=== PATIENT | female | born 1970 | race Caucasian/White ===

== ENCOUNTER 2022-06-28 09:26 | Emergency (ER) | payer BC, SELFPAY ==
--- NOTE | ~2022-06-28 | CT_ITS ---
EXAMINATION: CTA chest PE abdomen pel DATE: 06/28/2022 12:09 CDT INDICATION: Shortness of breath, chest pain, abdomen pain and low back pain. Stage IV lung cancer. TECHNIQUE: Computed tomographic angiography (CTA) of the chest, abdomen, and pelvis was performed wit hout and with 100 mL Omnipaque-350 intravenous contrast. The dose-length product was 965.73 mGy-cm. M aximum intensity projection 3D-reconstructions of the aorta and other arteries were constructed by melo garcia technologist on a separate workstation. COMPARISON: No prior studies for comparison. . 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 No rafaela dence for aortic aneurysm or dissection. Heart size normal. No significant pleural or pericardial eff usion. There is extensive mediastinal and bilateral hilar lymphadenopathy. There is conglomerate righ t upper lobe mass measuring approximately 7.5 x 6.4 x 6.8 cm. There is a cavitary right upper lobe no dule measuring 2.4 cm posteriorly abutting the pleural surface. There is a cavitary mass in the left upper lobe adjacent to the fissure measuring 5.8 x 1.8 cm greatest axial dimension. There is emphysem a. There is a 7 mm left lower lobe nodule. There is an 8 mm right lower lobe nodule. No pneumothorax. No endobronchial lesions. There there are additional groundglass nodules of the right lower lobe jia suring up to 8 mm. ABDOMEN AND PELVIS CTA: There is splenomegaly. There are calcified granulomas of the spleen. There is an IVC filter present. The liver, pancreas, adrenal glands are unremarkable. There is a 2.4 x 2.2 cm hypovascular mass of th e right kidney posteriorly. There is a small subcentimeter hypodensity of the right kidney, most like ly benign cysts. No significant vascular abnormality. There are air-fluid levels throughout the bowel , most likely ileus. No definite obstruction. Normal appendix. No lymphadenopathy. No free air or franko e fluid. There are surgical changes of the left femoral neck. There are multiple lytic lesions involv ing multiple lower thoracic vertebra, lumbar vertebra, sacrum and pelvis as well as the proximal aspe ct of the right femur there is a large lytic defect of T8 with pathologic fracture of the superior en dplate and destruction of the anterior cortex. There is a healed right eighth rib fracture posteriorl y. IMPRESSION: 1. Occluded right lower lobe segmental pulmonary artery, consistent with embolism, likely chronic. 2: Large conglomerate right upper lobe mass invading the mediastinum measuring up to 7.5 cm. Multipl e additional bilateral breast nodules are present, largest in the left upper lobe measuring 5.8 cm wi th associated cavitary change. Findings are consistent with primary bronchogenic carcinoma with metas tases. 3: Mediastinal and hilar lymph node enlargement, consistent with metastatic disease. 4: Splenomegaly. 5: Hypodense right renal mass measuring 2.4 cm. Consider infection, primary malignancy and metastatic disease. 6: Widespread osseous metastases with pathologic fractures. Plate of T8. Reviewed, dictated and finalized at location A. IMPRESSION: 1. Occluded right lower lobe segmental pulmonary artery, consistent with emboli sm, likely chronic. 2: Large conglomerate right upper lobe mass invading the mediastinum measuring up to 7.5 cm. Multiple additional bilateral breast nodules are present, larges t in the left upper lobe measuring 5.8 cm with associated cavitary change. Find ings are consistent with primary bronchogenic carcinoma with metastases. 3: Mediastinal and hilar lymph node enlargement, consistent with metastatic dis ease. 4: Splenomegaly. 5: Hypodense right renal mass measuring 2.4 cm. Consider infection, primary mal ignancy and metastatic disease. 6: Wides
[2022-06-28 09:29] VITALS: BP 115/60; PULSE 109; RESP 18; TEMP 36.4; O2SAT 100
--- NOTE | 2022-06-28 09:51 | ED.GENADULT ---
HPI - General Adult General Chief complaint: Unspecified Stated complaint: PAIN ALL OVER Time Seen by Provider: 06/28/22 09:40 Source: patient and family Mode of arrival: EMS Limitations: no limitations History of Present Illness HPI narrative: Patient is a 51 y/o female who presents to the ED via EMS with multiple complaints. Daughter at bedside assisted in providing patient's information. 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 She was diagnosed in March and is currently undergoing palliative chemotherapy under Dr. Sullivan at [facility] [place]. Mother reports patient had multiple complications after her last chemotherapy treatment and required platelet and blood transfusions. Patient last had a chemo treatment last Wednesday. She reported having acute on chronic worsening low back pain since the last treatment. She was advised to go to the hospital on Wednesday, however they did not want to go. This morning, patient reported that something did not feel right and EMS was called. Patient does complain of intermittent pain in her chest and abdomen, nausea, low back pain, pain to her hips. Patient has not taken anything for her pain. She has previously Rx'd oxycodone by pain management, but has run out of these. Per patient's med rec, she was Rx'd a 30day supply of Oxycodone 20mg ER tablets on 06/09. Denies fever, worsening shortness of breath. Chronically wears 3L NC. Related Data Allergies Allergy/AdvReac Type Severity Reaction Status Date / Time No Known Allergies Allergy Verified 06/28/22 09:40 Review of Systems Review of Systems: CONSTITUTIONAL: Denies fever, chills, or sweats. CARDIOVASCULAR: See HPI. RESPIRATORY: Denies dyspnea. GASTROINTESTINAL: See HPI. GENITOURINARY: Denies dysuria or hematuria. SKIN: Denies rash or itching. MUSCULOSKELETAL: See HPI. All systems reviewed & are unremarkable except as noted in HPI and below PMFSH Past Medical History Medical History Stage IV squamous cell carcinoma of lung Surgical History Surgical History S/P ORIF (open reduction internal fixation) fracture ronal to femur from bone/pelvic metastatic erosion Family History Family History (Updated 12/20/17 @ 15:39 by DOCTOR UNKNOWN) Mother Carcinoma of colon Father Family history of lung cancer, Onset Age: 77 Social History Social History Smoking status: Heavy tobacco smoker Alcohol intake: never Exam Narrative: GENERAL: Chronically ill appearing, obese with BMI of 30.3, non-toxic, in no acute distress. HEAD: Normocephalic, atraumatic. EENT: PERRLA/EOMI, conjunctiva clear. MMs somewhat dry. NECK: Supple. No adenopathy, no masses. RESPIRATORY: Airway patent, respirations nonlabored. Clear to auscultation bilaterally, no rales, rhonchi, wheezing. No tachypnea or distress. On 3L nasal cannula. CARDIOVASCULAR: Borderline tachycardic with regular rhythm without murmurs, rubs, or gallops. Peripheral pulses 2+ and equal bilaterally. ABDOMINAL: Soft, tenderness and left-sided abdomen, nondistended, no hepatosplenomegaly. Normoactive BS. MUSCULOSKELETAL: Moves all extremities. Strength/ROM intact without gross deformities. Diffuse tenderness throughout thoracic or lumbar spine. No palpable deformities. SKIN: Warm, dry, mildly pale appearing. No rashes. NEURO: A&O X3. Speech clear. Occasionally forgetful or losing thought process. Cranial nerves II-XII grossly intact. No ataxic movements. PSYCHIATRIC: Appropriate mood and affect. Normal interaction. Course Vital Signs Vital signs: Vital Signs Temperature 97.6 F 06/28/22 09:29 Pulse Rate 109 H 06/28/22 09:29 Respiratory Rate 18 06/28/22 09:29 Blood Pressure 115/60 06/28/22 09:29 Pulse Oximetry 100 06/28/22 09:29 Oxy
--- NOTE | 2022-06-28 10:06 | ECG_ITS ---
Measurements Intervals [place] Rate: 110 P: 56 ME: 140 QRS: 14 QRSD: 80 T: 66 QT: 309 QTc: 418 Interpretive Statements SINUS TACHYCARDIA LEFT ATRIAL ENLARGEMENT CONSIDER INFERIOR INFARCT, AGE INDETERMINATE BORDERLINE T WAVE ABNORMALITY- ANTERIOR LEADS ABNORMAL ECG NO PREVIOUS ECG AVAILABLE FOR COMPARISON Electronically Signed On 06-28-2022 13:32:00 CDT by Kilo Bates D.O.
[2022-06-28 11:03] LABS: Basophils Absolute Auto 0.1 K/mm3 (0.0-0.1); Basophils Percent Auto 0.9 % (0.2-1.2); Hematocrit 23.7 % (37.0-47.0); Hemoglobin 7.1 g/dL (12.0-15.0); Immature Granulocyte Percent A 1.8 % (0-0.5); Immature Platelet Fraction Pct 2.8 % (0.9-11.2); Lymphocytes Absolute Auto 0.15 K/mm3 (0.9-3.2); Lymphocytes Percent Auto 2.7 % (18.3-44.2); Mean Corpuscular Hemoglobin 25.5 pg (26-34); Mean Corpuscular Volume 85.3 fl (80-100); Mean Platelet Volume 10.9 fl (7.4-10.4); Monocytes Percent Auto 0.7 % (2.6-8.5); Neutrophils Absolute Auto 5.3 K/mm3 (1.3-6.7); Neutrophils Percent Auto 93.9 % (45.5-73.1); Platelet Count Result 96 k/mm3 (150-375); Red Blood Count 2.78 M/mm3 (4.2-5.4); Red Cell Distribution Width 19.2 % (11.5-14.5); White Blood Count 5.6 K/mm3 (4.5-10.0)
[2022-06-28 11:12] LABS: Alanine Aminotransferase 13 U/L (6-35); Albumin Level 3.1 g/dL (3.5-5.1); Alkaline Phosphatase 172 U/L (38-126); Anion Gap 5 mmol/L (8-16); Aspartate Amino Transferase 17 U/L (14-36); Bilirubin,Total 0.9 mg/dL (0.2-1.3); Blood Urea Nitrogen 12 mg/dL (7-17); Carbon Dioxide 29 mmol/L (22-30); Chloride 101 mmol/L (98-107); Estimated CRCL calculation 94 ml/min; Estimated Glomerular Filt Rate > 60; Glucose 128 mg/dL (65-110); Lactic Acid Reflex 0.8 mmol/L (0.7-2.0); Lipase 52 U/L (23-300); Magnesium 1.7 mg/dL (1.6-2.3); Potassium 3.5 mmol/L (3.4-5.0); Sodium 135 mmol/L (137-145)
[2022-06-28 11:16] LABS: INR 1.2; Prothrombin Time 15.2 Seconds (11.1-14.7)
[2022-06-28 11:17] LABS: Partial Thromboplastin Time 28.9 SECONDS (22.3-36.8)
[2022-06-28 11:23] LABS: NT Pro B Type Natriuretic Pept 955 pg/mL (19.9-100); Troponin I < 0.012 ng/mL (0.000-0.034)
[2022-06-28] MEDS: SODIUM CHLORIDE 0.9% IV 1,000 ML 999 ML IV CONT (11:26)
[2022-06-28 11:27] LABS: Hypochromasia 2+ (NORMAL); Microcytosis 1+ (NORMAL); Poikilocytosis 1+ (NORMAL); Tear Drop Cells 1+ (NORMAL)
[2022-06-28 11:28] LABS: Schistocytes None Seen (NORMAL)
[2022-06-28 11:30] LABS: Appearance Urine Cloudy (Clear); Bacteria Urine 4+ /hpf; Bilirubin Urine Negative (Negative); Blood Urine Negative (Negative); Color Urine Yellow (Yellow); Glucose Urine UA Negative (Negative); Ketones Urine 2+ mg/dL (Negative); Leukocyte Esterase Ur Trace LEU/UL (Negative); Need Manual Microscopic Reviewed; Nitrate Urine Negative (Negative); Protein Urine 2+ mg/dL (Negative); Specific Grav Ur 1.016 (1.001-1.035); Squamous Epithelial Cell Urine Few /hpf (Few)
[2022-06-28 11:37] LABS: Add Urine Microscopic? YES; Influenza A QL RT-PCR Negative (Negative); Influenza B QL RT-PCR Negative (Negative); SARS-CoV-2 RNA PCR Negative (Negative)
[2022-06-28] MEDS: diphenhydrAMINE HCl INJ 50 MG/ML VIAL 25 MG IV PUSH (14:00)
[2022-06-28] MEDS: ACETAMINOPHEN 500 MG TABLET 1000 MG PO (14:00)
[2022-06-28 14:36] VITALS: BP 127/73; PULSE 104; RESP 18; TEMP 36.8; O2SAT 98
[2022-06-28] MEDS: TUBING, BLOOD SET 1 EACH XX (14:42)
[2022-06-28] MEDS: SODIUM CHLORIDE 0.9% IV 250 ML 30 ML IV CONT (14:42)
[2022-06-28 14:52] VITALS: BP 144/83; PULSE 120; RESP 18; TEMP 36.7; O2SAT 97
[2022-06-28 15:52] VITALS: BP 136/74; PULSE 104; RESP 22; TEMP 36.7; O2SAT 95
[2022-06-28 16:11] VITALS: BP 138/74; PULSE 100; RESP 21; TEMP 36.7; O2SAT 96
[2022-06-28 18:23] VITALS: BP 132/79; PULSE 78; O2SAT 99
== END 2022-06-28 18:24 | disposition home or self-care (01) ==
PROVIDERS: Emergency Provider Physician Assistant
DX: C34.91 Malignant neoplasm of unspecified part of right bronchus or lung (principal); D64.9 Anemia, unspecified; D69.6 Thrombocytopenia, unspecified; M84.58XA Pathological fracture in neoplastic disease, other specified site, initial encounter for fracture; I27.82 Chronic pulmonary embolism; R82.998 Other abnormal findings in urine; Z20.822 Contact with and (suspected) exposure to COVID-19; C79.51 Secondary malignant neoplasm of bone; C79.31 Secondary malignant neoplasm of brain; F17.200 Nicotine dependence, unspecified, uncomplicated; Z79.60 Long term (current) use of unspecified immunomodulators and immunosuppressants; R00.0 Tachycardia, unspecified; R94.31 Abnormal electrocardiogram [ECG] [EKG]
CPT/HCPCS: 36415; 36430; 71275; 74177; 80053; 81001; 83605; 83690; 83735; 83880; 84484; 85025; 85055; 85610; 85730; 86850; 86900; 86901; 86920; 87040; 87077; 87086; 87186; 87636; 93005; 96361; 96365; 96375; 99285; A9270; J0696; J1200; J7030; J7050; P9016; Q9967

== ENCOUNTER 2022-07-05 19:56 | Emergency (ER) | payer BC, SELFPAY ==
[2022-07-05] VITALS (24 sets, daily range): BP systolic 90–112; BP diastolic 38–71; PULSE 103–116; RESP 13–26; TEMP 36.5–36.8; O2SAT 97–100
--- NOTE | ~2022-07-05 | XR_ITS ---
EXAMINATION: XR chest 1V portable Exam Date/Time: 07/05/2022 20:45 CDT HISTORY: Hemoptysis SHORT OF BREATH, FEVER Comparison: CTPA 06/28/2022. RESULT: Lines, tubes, and devices: Left chest port, terminating in the right atrium. Stent in the superior v teodoro cava. Lungs and pleura: New airspace disease in the right lower lung. Persistent right upper lobe opacific ations which corresponded to cavitary lesions in the prior CT. Left upper lobe cavitary lesion is not well seen radiographically. Cardiomediastinal silhouette: Stable. Known mediastinal lymphadenopathy not well seen radiographical ly. Other: No acute osseous or upper abdominal finding. IMPRESSION: Worsening airspace disease in the left lower lung, may represent edema, pulmonary hemorrhage, or infe ction. Reviewed, dictated and finalized at location K. IMPRESSION: Worsening airspace disease in the left lower lung, may represent edema, pulmona ry hemorrhage, or infection.
--- NOTE | ~2022-07-05 | CT_ITS ---
EXAMINATION: CTA chest PE protocol DATE: 07/05/2022 22:16 INDICATION: Dyspnea. Hemoptysis. TECHNIQUE: Computed tomography angiography (CTA) of the chest was performed with 100 mL Omnipaque-350 intravenous contrast timed to evaluate the pulmonary arteries. Coronal maximum intensity projection 3D-reconstructions were created by the technologist. Automated exposure control and iterative reconst ruction technique were employed. The dose-length product was 213.13 mGy-cm. COMPARISON: Chest CT 06/28/2022 FINDINGS: There are airspace and groundglass opacities and centrilobular nodules throughout left righ t lung. There is a 7.4 x 5.9 cm cavitary mass in right upper lobe. There is a 2.5 x 1.8 cm cavitary n odule in right upper lobe. There are patchy groundglass opacities in left upper lobe and left lower l obe. There are centrilobular nodules in left lower lobe. There is a 5.3 x 1.9 cm cavitary mass in wallace gula. A calcified right lung nodule and calcified right hilar lymph nodes are consistent with old gra nulomatous disease. There is mild stenosis of the right mainstem bronchus. There is a trace right ple ural effusion. The heart size is normal. No pericardial effusion. There is right hilar and mediastina l lymphadenopathy. There is right supraclavicular lymphadenopathy. There is a left internal jugular p ort with tip at superior cavoatrial junction. Again seen are thrombosed pulmonary arteries in right l ower lobe and lingula. The gallbladder is distended. Calcifications in the spleen are consistent with old granulomatous disease. There is mild splenomegaly. There are scattered lytic lesions of bone. Th ere are healing pathologic fractures of right seventh and ninth ribs and left fifth rib. There is a p athologic compression fracture of T8. There is mild chronic anterior wedging of T11 vertebral body. IMPRESSION: 1. Thrombosed pulmonary arteries again seen in right lower lobe and lingula, which may be chronic. 2. Cavitary mass in right upper lobe, likely primary bronchogenic carcinoma. 3. Diffuse lung disease, consistent with pneumonia. A cavitary nodule in right upper lobe and cavitar y mass in lingula may be metastatic disease or pneumonia. 4. Widespread osseous metastatic disease. 5. Right hilar and mediastinal lymphadenopathy, likely metastatic disease. Reviewed, dictated and finalized at location A. IMPRESSION: 1. Thrombosed pulmonary arteries again seen in right lower lobe and lingula, wh ich may be chronic. 2. Cavitary mass in right upper lobe, likely primary bronchogenic carcinoma. 3. Diffuse lung disease, consistent with pneumonia. A cavitary nodule in right upper lobe and cavitary mass in lingula may be metastatic disease or pneumonia. 4. Widespread osseous metastatic disease. 5. Right hilar and mediastinal lymphadenopathy, likely metastatic disease.
[2022-07-05] MEDS: SODIUM CHLORIDE 0.9% IV 1,000 ML 999 ML IV CONT (20:36)
[2022-07-05] MEDS: ONDANSETRON INJ 4 MG/2 ML VIAL IV PUSH (20:36)
[2022-07-05 20:45] LABS: Immature Platelet Fraction Pct 6.5 % (0.9-11.2); Mean Corpuscular HGB Conc 31.9 g/dl (32-36); Mean Corpuscular Hemoglobin 25.4 pg (26-34); Mean Corpuscular Volume 79.6 fl (80-100); Mean Platelet Volume 10.8 fl (7.4-10.4); Platelet Count Result 51 k/mm3 (150-375); Red Blood Count 2.01 M/mm3 (4.2-5.4); Red Cell Distribution Width 16.2 % (11.5-14.5); White Blood Count 10.7 K/mm3 (4.5-10.0)
[2022-07-05 20:53] LABS: INR 1.6; Prothrombin Time 20.3 Seconds (11.1-14.7)
[2022-07-05 20:54] LABS: Lactic Acid Reflex 0.7 mmol/L (0.7-2.0)
[2022-07-05 20:57] LABS: Alanine Aminotransferase 14 U/L (6-35); Alkaline Phosphatase 139 U/L (38-126); Aspartate Amino Transferase 16 U/L (14-36); Bilirubin,Total 0.8 mg/dL (0.2-1.3); Blood Urea Nitrogen 16 mg/dL (7-17); Calcium 7.7 mg/dL (8.4-10.2); Carbon Dioxide > 40 mmol/L (22-30); Chloride 91 mmol/L (98-107); Estimated CRCL calculation 90 ml/min; Estimated Glomerular Filt Rate > 60; Glucose 94 mg/dL (65-110); Magnesium 1.4 mg/dL (1.6-2.3); Potassium 2.7 mmol/L (3.4-5.0); Sodium 136 mmol/L (137-145)
[2022-07-05] MEDS: LEVALBUTEROL NEB 1.25 MG/3 ML INHALATION (20:57)
[2022-07-05] MEDS: IPRATROPIUM BR 0.02% INH SOLN 0.5 MG/2.5 ML VIAL INHALATION (20:58)
[2022-07-05 21:02] LABS: Hemoglobin 5.1 g/dL (12.0-15.0)
[2022-07-05 21:04] LABS: NT Pro B Type Natriuretic Pept 741 pg/mL (19.9-100); Troponin I < 0.012 ng/mL (0.000-0.034)
[2022-07-05 21:09] LABS: Band Neutrophils Percent 5 % (0-6); Lymphocytes Absolute Manual 1.39 K/mm3 (1.1-4.5); Lymphocytes Percent Manual 13 % (18-44); Monocytes Absolute Manual 0.42 K/mm3 (0.1-0.90); Monocytes Percent Manual 4 % (3-9); Total Cells Counted 100
[2022-07-05 21:10] LABS: Anisocytosis 2+ (NORMAL); Metamyelocytes Percent 2 %; Neutrophils Absolute Manual 8.66 K/mm3 (1.7-7.2); Neutrophils Percent Manual 76 % (46-73); Platelet Estimate Decreased (Adequate)
[2022-07-05 21:11] LABS: Ovalocytes 1+ (NORMAL)
[2022-07-05 21:12] LABS: Atypical Lymphocytes Present; Schistocytes None Seen (NORMAL)
[2022-07-05 21:17] LABS: Procalcitonin 1.8 ng/mL
--- NOTE | 2022-07-05 22:51 | ED.GENADULT ---
HPI - General Adult General Chief complaint: Recheck/Abnormal Lab/Rx Stated complaint: coughing up blood Time Seen by Provider: 07/05/22 20:05 History of Present Illness HPI narrative: Patient is a 51-year-old female who presents the emergency department with chief complaint of hemoptysis. The patient reports she has history of lung cancer and is undergoing treatment with her oncologist at [facility]. Patient states that she completed treatment approximately 2 weeks ago and for 2 days now has been having hemoptysis and feeling generalized weakness. Patient reports that she is concerned that she may have electrolyte abnormalities or may be anemic and required a transfusion. Related Data Home Medications Medication Instructions Recorded Confirmed cyanocobalamin (vitamin B-12) 100 100 mcg PO DAILY 07/05/22 07/05/22 mcg tablet ergocalciferol (vitamin D2) 1,250 50,000 WEEKLY 07/05/22 mcg (50,000 unit) capsule folic acid 1 mg tablet 07/05/22 ondansetron HCl 4 mg tablet mg 07/05/22 oxycodone 20 mg tablet mg 07/05/22 pantoprazole 40 mg tablet,delayed mg PO 07/05/22 release polysaccharide iron complex 150 mg mg 07/05/22 iron capsule pregabalin 50 mg capsule mg 07/05/22 prochlorperazine maleate 10 mg mg 07/05/22 tablet senna-docusate sodium tablet tablet PO 07/05/22 07/05/22 sodium di- and tablet 07/05/22 07/05/22 monophosphate-potassium phos monobasic 250 mg tablet (Phosphorous) Allergies Allergy/AdvReac Type Severity Reaction Status Date / Time No Known Allergies Allergy Verified 07/05/22 20:11 Review of Systems Review of Systems: A 10 system review of systems was completed on the patient and is negative except for what is stated in the HPI. Nursing and ancillary documentation was reviewed. [facility] Past Medical History Medical History Stage IV squamous cell carcinoma of lung Surgical History Surgical History S/P ORIF (open reduction internal fixation) fracture ronal to femur from bone/pelvic metastatic erosion Family History Family History Mother Carcinoma of colon Father Family history of lung cancer, Onset Age: 77 Social History Social History Smoking status: Heavy tobacco smoker Alcohol intake: never Exam Narrative: GENERAL: Well-appearing, well-nourished, and in no acute distress. HEAD: Normocephalic, atraumatic. EYES: PERRLA and EOMI. ENT: Nares clear, no rhinorrhea or epistaxis. Mucous membranes moist. NECK: Supple. CHEST: Rhonchi to auscultation. No respiratory distress. HEART: Regular rate and rhythm. No murmur heard. Normal peripheral pulses. ABDOMEN: Soft, nontender, nondistended, normal active bowel sounds. EXTREMITIES: Normal range of motion. No edema. SKIN: Warm, dry, no rash. There are bruises and petechiae present on the upper extremities NEURO: No focal deficits. Alert and oriented x3. PSYCH: Normal mood and affect. Course Vital Signs Vital signs: Vital Signs Temperature 36.6 C 07/05/22 19:59 Pulse Rate 116 H 07/05/22 19:59 Respiratory Rate 26 H 07/05/22 19:59 Blood Pressure 112/71 07/05/22 19:59 Pulse Oximetry 100 07/05/22 19:59 Oxygen Delivery Nasal Cannula 07/05/22 19:59 Oxygen Flow Rate 2 07/05/22 19:59 Temperature 36.7 C 07/06/22 00:00 Pulse Rate 106 H 07/06/22 00:20 Respiratory Rate 15 07/06/22 00:20 Blood Pressure 113/55 L 07/06/22 00:20 Pulse Oximetry 100 07/06/22 00:20 Oxygen Delivery Nasal Cannula 07/05/22 20:53 Oxygen Flow Rate 2 07/05/22 20:53 Medical Decision Making MDM Narrative Medical decision making narrative: Differential diagnosis includes acute anemia, pulmonary embolism, pulmonary hemorrhage, pne
[2022-07-05 23:25] LABS: Influenza A QL RT-PCR Negative (Negative); Influenza B QL RT-PCR Negative (Negative); RSV RNA, RT-PCR Negative (Negative); SARS-CoV-2 RNA PCR Negative (Negative)
[2022-07-06] VITALS (7 sets, daily range): BP systolic 83–120; BP diastolic 44–62; PULSE 102–109; RESP 12–20; TEMP 36.3–36.7; O2SAT 100
[2022-07-06] MEDS: KCL 20 MEQ/SW 100 ML 100 ML 50 MEQ IVPB (01:25)
[2022-07-06] MEDS: MORPHINE SULFATE (*CRX) 4 MG/ML INJ IV PUSH (02:32)
== END 2022-07-06 02:35 | disposition short-term general hospital (02) ==
PROVIDERS: Emergency Provider Emergency Medicine
DX: R04.2 Hemoptysis (principal); C34.90 Malignant neoplasm of unspecified part of unspecified bronchus or lung; D64.9 Anemia, unspecified; D69.6 Thrombocytopenia, unspecified; E87.6 Hypokalemia; E83.42 Hypomagnesemia; F17.200 Nicotine dependence, unspecified, uncomplicated
CPT/HCPCS: 36415; 36430; 71045; 71275; 80053; 83605; 83735; 83880; 84145; 84484; 85025; 85055; 85610; 85730; 86850; 86900; 86901; 86923; 87040; 87637; 94640; 96361; 96365; 96367; 96374; 96375; 99285; J0696; J2270; J2405; J3480; J7030; J7050; P9016; Q9967

== ENCOUNTER 2022-09-12 00:20 | Emergency (ER) | payer BC, SELFPAY ==
[2022-09-12] VITALS (10 sets, daily range): BP systolic 119–141; BP diastolic 72–83; PULSE 94–102; RESP 12–24; TEMP 36.6; O2SAT 95–100
--- NOTE | ~2022-09-12 | XR_ITS ---
EXAM: XR hip RT min 3V w AP pelvis DATE: 09/12/2022 01:28 HISTORY: pain . COMPARISON: CTPA chest, abdomen, pelvis. FINDINGS: Normal mineralization. No fracture or dislocation. Scattered lucencies in the proximal rig ht femoral diaphysis, bilateral iliac bones, and sacrum. Partially visualized left femoral fixation h ardware. Heterotopic bone formation adjacent to the left hip. Mild bilateral hip osteoarthritis. Mild osteitis pubis. No erosion or periosteal change. Soft tissues within normal limits. IMPRESSION: No acute osseous finding. Lucent bone lesions consistent with metastatic disease. Reviewed, dictated and finalized at location K. IMPRESSION: No acute osseous finding. Lucent bone lesions consistent with metas tatic disease.
--- NOTE | ~2022-09-12 | XR_ITS ---
EXAM: XR ankle RT min 3V DATE: 09/12/2022 01:28 HISTORY: pain going from hip to ankle, no injury . COMPARISON: None available. FINDINGS: Normal mineralization. No fracture or dislocation. No lytic or blastic lesion. Plantar and Achilles enthesopathy. Mild degenerative change at the tibiotalar joint spaces are maintained. No er osion or periosteal change. Soft tissues within normal limits. IMPRESSION: No acute osseous finding in the right ankle. Reviewed, dictated and finalized at location K.
--- NOTE | ~2022-09-12 | XR_ITS ---
XR knee RT 3V DATE: 09/12/2022 01:29 INDICATION: Right knee pain TECHNIQUE: 3 views COMPARISON: None FINDINGS: There is mild periarticular spurring at the medial and patellofemoral compartments. Medial and lateral compartment joint spaces appear relatively preserved. No fracture or dislocation or joint effusion. No radiopaque intra-articular loose body or chondrocalc inosis is detected. IMPRESSION: Mild osteoarthritis Reviewed, dictated and finalized at location A. IMPRESSION: Mild osteoarthritis
--- NOTE | ~2022-09-12 | CT_ITS ---
EXAMINATION: CT pelvis wo con DATE: 09/12/2022 01:51 INDICATION: Right hip pain TECHNIQUE: Computed tomography (CT) of the pelvis was performed without intravenous contrast. Automat ed exposure control and iterative reconstruction technique were employed. Exam dose: 599.99 mGy-cm t otal exam DLP. COMPARISON: None. FINDINGS: There is a lytic lesion of the right L5 pedicle. There are multiple lytic lesions in both i liac bones, the posterior acetabula bilaterally, bilateral sacral lytic lesions, including a particul amos large lesion in the right sacral alar and body. Lytic lesions are suggested in both proximal femurs. Findings are consistent with osteolytic metastat ic disease. There is an intramedullary ronal of the left femur with interlocking compression screw extending into t he left femoral head into the distal transverse interlocking screws. Prominent soft tissue masses in the lateral left pelvic and hip area, possibly soft tissue metastases . 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 Multiple soft tissue masses in the lateral left pelvic and hip area, possibly soft tissue metastases Reviewed, dictated and finalized at Location A. Reviewed, dictated and finalized at location A. 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 Multiple soft tissue masses in the lateral left pelvic and hip area, possibly s oft tissue metastases
[2022-09-12] MEDS: HYDROmorphone HCL INJ (*CRX) 1 MG/ML SYR IV PUSH ×4 (00:56→06:36)
[2022-09-12] MEDS: ONDANSETRON INJ 4 MG/2 ML VIAL IV PUSH (00:56)
[2022-09-12 01:12] LABS: Basophils Percent Auto 0.2 % (0.2-1.2); Eosinophils Percent Auto 0.1 % (0-4.4); Hemoglobin 8.1 g/dL (12.0-15.0); Immature Granulocyte Absolute 0.16 K/mm3 (0.00-0.031); Immature Granulocyte Percent A 1.2 % (0-0.5); Lymphocytes Absolute Auto 0.39 K/mm3 (0.9-3.2); Lymphocytes Percent Auto 2.9 % (18.3-44.2); Mean Corpuscular HGB Conc 28.9 g/dl (32-36); Mean Corpuscular Hemoglobin 23.8 pg (26-34); Mean Corpuscular Volume 82.1 fl (80-100); Mean Platelet Volume 9.8 fl (7.4-10.4); Monocytes Absolute Auto 0.4 K/mm3 (0.1-0.6); Monocytes Percent Auto 3.3 % (2.6-8.5); Neutrophils Absolute Auto 12.3 K/mm3 (1.3-6.7); Neutrophils Percent Auto 92.3 % (45.5-73.1); Platelet Count Result 259 k/mm3 (150-375); Red Blood Count 3.41 M/mm3 (4.2-5.4); Red Cell Distribution Width 15.5 % (11.5-14.5); White Blood Count 13.4 K/mm3 (4.5-10.0)
[2022-09-12 01:23] LABS: INR 1.2; Partial Thromboplastin Time 29.6 SECONDS (22.3-36.8); Prothrombin Time 15.4 Seconds (11.1-14.7)
[2022-09-12 01:23] LABS: Alanine Aminotransferase 15 U/L (6-35); Albumin Level 2.6 g/dL (3.5-5.1); Alkaline Phosphatase 210 U/L (38-126); Anion Gap 1 mmol/L (8-16); Aspartate Amino Transferase 15 U/L (14-36); Bilirubin,Total 0.5 mg/dL (0.2-1.3); Blood Urea Nitrogen 11 mg/dL (7-17); Calcium 8.9 mg/dL (8.4-10.2); Carbon Dioxide 32 mmol/L (22-30); Chloride 99 mmol/L (98-107); Estimated CRCL calculation 79 ml/min; Estimated Glomerular Filt Rate > 60; Glucose 120 mg/dL (65-110); Magnesium 1.8 mg/dL (1.6-2.3); Potassium 3.4 mmol/L (3.4-5.0); Sodium 132 mmol/L (137-145)
[2022-09-12 02:23] LABS: Troponin I < 0.012 ng/mL (0.000-0.034)
--- NOTE | 2022-09-12 02:48 | PC.NURSE ---
When discussing with EDP; this RN noted that she had administered 0.5 mg of Dilaudid instead of the 1 mg of Dilaudid ordered. Witnessed in Pyxis prior to administration.
[2022-09-12 04:13] LABS: Appearance Urine Clear (Clear); Bacteria Urine Rare /hpf; Bilirubin Urine Negative (Negative); Blood Urine Negative (Negative); Color Urine Dark Yellow (Yellow); Glucose Urine UA Negative (Negative); Ketones Urine Trace mg/dL (Negative); Leukocyte Esterase Ur Trace LEU/UL (Negative); Need Manual Microscopic Reviewed; Nitrate Urine Negative (Negative); Protein Urine 1+ mg/dL (Negative); RBC Urine 0-2 /hpf (0-2); Specific Grav Ur 1.021 (1.001-1.035); Squamous Epithelial Cell Urine Few /hpf (Few); WBC Urine 0-5 /hpf; pH Urine 6.5 (5.0-9.0)
[2022-09-12 04:14] LABS: Add Urine Microscopic? YES
[2022-09-12] MEDS: MECLIZINE HCL 25 MG TABLET PO (05:14)
[2022-09-12 05:16] LABS: Troponin I < 0.012 ng/mL (0.000-0.034)
--- NOTE | 2022-09-12 06:16 | ED.GENADULT ---
HPI - General Adult General Chief complaint: Extremity Injury, Lower Stated complaint: LEG PAIN Time Seen by Provider: 09/12/22 00:35 History of Present Illness HPI narrative: Patient 51-year-old female who presents the emergency department with chief complaint of right hip pain. Patient reports she has history of metastatic lung cancer and reports that she has prior history of a pathological fracture of her left femur. The patient reports that now she is having pain in her right hip Related Data Home Medications Medication Instructions Recorded Confirmed cyanocobalamin (vitamin B-12) 100 100 mcg PO DAILY 07/05/22 07/05/22 mcg tablet ergocalciferol (vitamin D2) 1,250 50,000 WEEKLY 07/05/22 mcg (50,000 unit) capsule folic acid 1 mg tablet 07/05/22 ondansetron HCl 4 mg tablet mg 07/05/22 oxycodone 20 mg tablet mg 07/05/22 pantoprazole 40 mg tablet,delayed mg PO 07/05/22 release polysaccharide iron complex 150 mg mg 07/05/22 iron capsule pregabalin 50 mg capsule mg 07/05/22 prochlorperazine maleate 10 mg mg 07/05/22 tablet senna-docusate sodium tablet tablet PO 07/05/22 07/05/22 sodium di- and tablet 07/05/22 07/05/22 monophosphate-potassium phos monobasic 250 mg tablet (Phosphorous) Allergies Allergy/AdvReac Type Severity Reaction Status Date / Time No Known Allergies Allergy Verified 07/05/22 20:11 Review of Systems Review of Systems: A 10 system review of systems was completed on the patient and is negative except for what is stated in the HPI. Nursing and ancillary documentation was reviewed. [facility] Past Medical History Medical History Stage IV squamous cell carcinoma of lung Surgical History Surgical History S/P ORIF (open reduction internal fixation) fracture ronal to femur from bone/pelvic metastatic erosion Family History Family History Mother Carcinoma of colon Father Family history of lung cancer, Onset Age: 77 Social History Social History Smoking status: Heavy tobacco smoker Alcohol intake: never Exam Narrative: GENERAL: Well-appearing, well-nourished, and in no acute distress. HEAD: Normocephalic, atraumatic. EYES: PERRLA and EOMI. ENT: Nares clear, no rhinorrhea or epistaxis. Mucous membranes moist. NECK: Supple. CHEST: Clear to auscultation. No respiratory distress. HEART: Regular rate and rhythm. No murmur heard. Normal peripheral pulses. ABDOMEN: Soft, nontender, nondistended, normal active bowel sounds. EXTREMITIES: Normal range of motion tenderness to palpation in the right hip area. No edema. SKIN: Warm, dry, no rash. NEURO: No focal deficits. Alert and oriented x3. PSYCH: Normal mood and affect. Course Vital Signs Vital signs: Vital Signs Temperature 36.6 C 09/12/22 00:19 Pulse Rate 98 09/12/22 00:19 Respiratory Rate 12 09/12/22 00:19 Blood Pressure 119/79 09/12/22 00:19 Pulse Oximetry 99 09/12/22 00:19 Oxygen Delivery Room Air 09/12/22 00:19 Temperature 36.6 C 09/12/22 00:19 Pulse Rate 102 H 09/12/22 06:12 Respiratory Rate 12 09/12/22 06:12 Blood Pressure 127/83 09/12/22 06:12 Pulse Oximetry 98 09/12/22 06:12 Oxygen Delivery Room Air 09/12/22 00:19 Medical Decision Making [facility] Narrative Medical decision making narrative: Differential diagnosis metastatic disease, pathological fracture Presented with pain white count of 13.4 hemoglobin was 8.1 electrolytes were within normal limits alk phos was slightly elevated at 210 CT scan of the pelvis was obtained which showed worsening osseous metastatic disease right sacral osteo lytic mass no acute fracture left lower extremity shows worsening metastatic disease hematoma or neop
[2022-09-12] MEDS: BELLADONNA ALK/PHENOB ELIX 10 ML, MAG HYDROX/ALUMINUM HYD/SIMETH 30 ML, LIDOCAINE HCL 2... PO (06:34)
== END 2022-09-12 07:31 | disposition home or self-care (01) ==
PROVIDERS: Emergency Provider Emergency Medicine
DX: R10.2 Pelvic and perineal pain (principal); C34.90 Malignant neoplasm of unspecified part of unspecified bronchus or lung; C79.51 Secondary malignant neoplasm of bone; F17.200 Nicotine dependence, unspecified, uncomplicated; M17.11 Unilateral primary osteoarthritis, right knee
CPT/HCPCS: 36415; 72192; 73502; 73562; 73610; 80053; 81001; 83735; 84484; 85025; 85610; 85730; 96374; 96375; 96376; 99284; A9270; J1170; J2405

== ENCOUNTER 2022-09-26 12:35 | Emergency (ER) | payer BC, SELFPAY ==
[2022-09-26] VITALS (60 sets, daily range): BP systolic 73–127; BP diastolic 46–77; PULSE 106–123; RESP 13–25; TEMP 36.6; O2SAT 96–100
--- NOTE | ~2022-09-26 | XR_ITS ---
EXAMINATION: XR hip RT 2V w AP pelvis DATE: 09/26/2022 14:33 INDICATION: Right hip pain. TECHNIQUE: An anteroposterior view of the pelvis and 2 views of right hip were obtained. COMPARISON: Pelvis and right hip radiographs 09/12/2022, CT pelvis 09/12/2022 FINDINGS: Bone alignment is normal. No fracture. There is a lytic lesion in subtrochanteric region of right femur. There are lytic lesions in the iliac bones and sacrum. There is internal fixation of pr oximal left femur. There is mild osteoarthritis of the hips. There is a filter in the inferior vena c ward. IMPRESSION: 1. Lytic lesions of bone, consistent with metastatic disease. 2. Mild osteoarthritis of the hips. Reviewed, dictated and finalized at location E.
--- NOTE | 2022-09-26 12:46 | PC.NURSE ---
Pt arrived with a Fentanyl patch from home on the L buttocks.
--- NOTE | 2022-09-26 13:00 | ED.GENADULT ---
HPI - General Adult General Chief complaint: Unspecified Stated complaint: hip pain Time Seen by Provider: 09/26/22 12:54 History of Present Illness HPI narrative: patient is a 52-year-old female with history of metastatic stage IV lung cancer here with right hip pain. She denies any falls. She notes it has been an ongoing issue for the last several weeks. She does note history of prior fracture in the left hip. She notes that the pain has become unbearable on the right side. Her home regimen includes multiple pain patches including a fentanyl patch which have not been improving her pain. The pain begins in her right hip and radiates downward into her right leg. She notes she was seen here about 2 weeks ago for the same, it is been unchanged since that time. She was additionally seen 2 days ago at [place] emergency department for the same where she had imaging performed which was negative. Both of her last 2 ER visits she was offered admission for pain control but she declined. She is currently on radiation, last round was yesterday. She denies fever or chills. She denies any leg swelling. She notes a history of a prior DVT however is not on any anticoagulation because she has been told in the past she had a high risk of bleeding. She gets around her home with a walker. Related Data Home Medications Medication Instructions Recorded Confirmed cyanocobalamin (vitamin B-12) 100 100 mcg PO DAILY 07/05/22 07/05/22 mcg tablet ergocalciferol (vitamin D2) 1,250 50,000 WEEKLY 07/05/22 mcg (50,000 unit) capsule folic acid 1 mg tablet 07/05/22 ondansetron HCl 4 mg tablet mg 07/05/22 oxycodone 20 mg tablet mg 07/05/22 pantoprazole 40 mg tablet,delayed mg PO 07/05/22 release polysaccharide iron complex 150 mg mg 07/05/22 iron capsule pregabalin 50 mg capsule mg 07/05/22 prochlorperazine maleate 10 mg mg 07/05/22 tablet senna-docusate sodium tablet tablet PO 07/05/22 07/05/22 sodium di- and tablet 07/05/22 07/05/22 monophosphate-potassium phos monobasic 250 mg tablet (Phosphorous) Allergies Allergy/AdvReac Type Severity Reaction Status Date / Time No Known Allergies Allergy Verified 09/26/22 12:43 Review of Systems Review of Systems: CONSTITUTIONAL: Denies fever, chills, or sweats. CARDIOVASCULAR: Denies chest pain, or edema. RESPIRATORY: Denies cough or dyspnea changed from her baseline. GASTROINTESTINAL: Denies abdominal pain MUSCULOSKELETAL: right hip pain NEUROLOGIC: Denies headache, numbness, or weakness. [facility] Past Medical History Medical History Stage IV squamous cell carcinoma of lung Surgical History Surgical History S/P ORIF (open reduction internal fixation) fracture ronal to femur from bone/pelvic metastatic erosion Family History Family History Mother Carcinoma of colon Father Family history of lung cancer, Onset Age: 77 Social History Social History Smoking status: Heavy tobacco smoker Alcohol intake: never Exam Narrative: GENERAL: chronically ill appearing, and in no acute distress. HEAD: Normocephalic, atraumatic. EYES: PERRLA and EOMI. ENT: Nares clear. Mucous membranes moist. NECK: Supple. CHEST: Coarse breath sounds bilaterally. No respiratory distress. HEART: Tachycardic. Normal peripheral pulses. ABDOMEN: Soft, nontender, nondistended. EXTREMITIES: Normal range of motion. Tenderness over the right lateral hip and right proximal femur SKIN: Warm, dry, no rash. NEURO: No focal deficits. Alert and oriented x3. PSYCH: Normal mood and affect. Course Course Emergency Course: Chart review performed. Patient presented via EMS for right hip and leg pain. History of stage 4 lung CA with ch
[2022-09-26] MEDS: HYDROmorphone HCL INJ (*CRX) 1 MG/ML SYR IV PUSH ×4 (13:19→17:39)
[2022-09-26] MEDS: ONDANSETRON INJ 4 MG/2 ML VIAL IV PUSH (13:19)
[2022-09-26 13:31] LABS: Basophils Percent Auto 0.3 % (0.2-1.2); Eosinophils Percent Auto 0.4 % (0-4.4); Hematocrit 28.7 % (37.0-47.0); Immature Granulocyte Absolute 0.13 K/mm3 (0.00-0.031); Immature Granulocyte Percent A 1.2 % (0-0.5); Lymphocytes Absolute Auto 0.27 K/mm3 (0.9-3.2); Lymphocytes Percent Auto 2.6 % (18.3-44.2); Mean Corpuscular HGB Conc 27.9 g/dl (32-36); Mean Corpuscular Hemoglobin 23.5 pg (26-34); Mean Corpuscular Volume 84.4 fl (80-100); Mean Platelet Volume 10.4 fl (7.4-10.4); Monocytes Absolute Auto 0.4 K/mm3 (0.1-0.6); Monocytes Percent Auto 3.5 % (2.6-8.5); Neutrophils Absolute Auto 9.6 K/mm3 (1.3-6.7); Platelet Count Result 191 k/mm3 (150-375); Red Cell Distribution Width 16.6 % (11.5-14.5); White Blood Count 10.4 K/mm3 (4.5-10.0)
[2022-09-26 13:44] LABS: Alanine Aminotransferase 13 U/L (6-35); Albumin Level 2.5 g/dL (3.5-5.1); Alkaline Phosphatase 181 U/L (38-126); Anion Gap 2 mmol/L (8-16); Aspartate Amino Transferase 13 U/L (14-36); Bilirubin,Total 0.5 mg/dL (0.2-1.3); Blood Urea Nitrogen 22 mg/dL (7-17); Calcium 8.4 mg/dL (8.4-10.2); Carbon Dioxide 28 mmol/L (22-30); Chloride 102 mmol/L (98-107); Estimated CRCL calculation 89 ml/min; Estimated Glomerular Filt Rate > 60; Glucose 97 mg/dL (65-110); Potassium 3.9 mmol/L (3.4-5.0); Sodium 132 mmol/L (137-145)
[2022-09-26 13:48] LABS: Hypochromasia 1+ (NORMAL); Microcytosis 1+ (NORMAL); Platelet Estimate Adequate (Adequate); Schistocytes None Seen (NORMAL)
[2022-09-26] MEDS: HYDROmorphone HCL INJ (*CRX) 1 MG/ML SYR 2 MG IV PUSH ×2 (15:56→19:52)
--- NOTE | 2022-09-26 17:46 | PC.NURSE ---
Dinner tray ordered for pt.
== END 2022-09-26 20:35 | disposition short-term general hospital (02) ==
LOC: ANHED 13:30
PROVIDERS: Emergency Provider Student in an Organized Health Care Education/Training Program
DX: C34.90 Malignant neoplasm of unspecified part of unspecified bronchus or lung (principal); M25.551 Pain in right hip; F17.200 Nicotine dependence, unspecified, uncomplicated; M16.0 Bilateral primary osteoarthritis of hip; M89.9 Disorder of bone, unspecified
CPT/HCPCS: 36415; 73502; 80053; 85025; 96374; 96375; 96376; 99285; J1170; J2405